=== PATIENT | female | born 1965 ===

== ENCOUNTER 2016-12-15 09:40 | Emergency (ER) | payer MEDICARE, OTHER ==
[2016-12-15 09:49] VITALS: BP 153/85; PULSE 57; TEMP 97.6; O2SAT 99
--- NOTE | 2016-12-15 10:22 | C.PDOC ---
History Of Present Illness 51 y/o female with Hx HTN presents to ED with complaints of hip pain and Gout pain worsen 4 days ago. Patient states she regularly has chronic hip pain and Gout pain but 4 days ago pain became worse. Patient denies injuries, dysuria, urinary or bowel incontinence or retention, fever, chills, numbness, weakness, recent procedures, or any other complaints at this time. Time Seen by Provider: 12/15/16 09:59 Chief Complaint (Nursing): Lower Extremity Problem/Injury History Per: Patient History/Exam Limitations: no limitations Onset/Duration Of Symptoms: Days Current Symptoms Are (Timing): Still Present Past Medical History Reviewed: Historical Data, Nursing Documentation, Vital Signs Vital Signs: Last Vital Signs Temp 97.6 F 12/15/16 09:49 Pulse 57 L 12/15/16 09:49 Resp 18 12/15/16 09:49 BP 153/85 H 12/15/16 09:49 Pulse Ox 99 12/15/16 10:30 - Medical History PMH: HTN Family History: States: No Known Family Hx - Social History Hx Alcohol Use: No Hx Substance Use: No Review Of Systems Except As Marked, All Systems Reviewed And Found Negative. Constitutional: Negative for: Fever, Chills Cardiovascular: Negative for: Chest Pain Genitourinary: Negative for: Dysuria, Frequency Musculoskeletal: Positive for: Foot Pain, Other (Hip Pain) Skin: Negative for: Rash Neurological: Negative for: Weakness, Headache, Dizziness Physical Exam - Physical Exam Additional Physical Exam Comments: Constitutional: No acute distress. Head: Normocephalic. Atraumatic. Eyes: PERRL. ENT: Moist mucous membranes. Neck: Supple. Cardiovascular: Regular rate. Radial pulse 2+ bilaterally. Chest: No tenderness. Respiratory: Clear to auscultation bilaterally. GI: Soft. Nontender. Nondistended. Back: No CVA tenderness. No Midline Tenderness Musculoskeletal: Right foot 1st digit Tenderness, Mild Swelling +Erythema Skin: No rash. Neurologic: Alert, no focal deficit.Sensation to touch intact B/L legs and saddle area , Motor 5/5 x 4 ED Course And Treatment O2 Sat by Pulse Oximetry: 99 (RA) Pulse Ox Interpretation: Normal Medical Decision Making Medical Decision Making: Toradol IM for pain. Patient's pain chronic with no evidence of infection, trauma, or cord compression. Will discharge home, f/u PMD, return to ER for worsening numbness, weakness, urinary or bowel symptoms, fever. Disposition - Disposition Disposition: HOME/ ROUTINE Disposition Time: 10:42 Condition: STABLE Prescriptions: Methocarbamol [Robaxin-750] 750 mg PO Q8H #12 tablet Instructions: Gout (ED), Hip Pain (ED) - Clinical Impression Clinical Impression: Joint pain - Scribe Statement The provider has reviewed the documentation as recorded by the Matt Judge All medical record entries made by the Matt were at my direction and personally dictated by me. I have reviewed the chart and agree that the record accurately reflects my personal performance of the history, physical exam, medical decision making, and the department course for this patient. I have also personally directed, reviewed, and agree with the discharge instructions and disposition.
--- NOTE | 2016-12-15 10:24 | C.PDOC ---
Time Seen by Provider: 12/15/16 09:59 Chief Complaint (Nursing): Lower Extremity Problem/Injury Past Medical History Vital Signs: Last Vital Signs Temp 97.6 F 12/15/16 09:49 Pulse 57 L 12/15/16 09:49 Resp 18 12/15/16 09:49 BP 153/85 H 12/15/16 09:49 Pulse Ox 99 12/15/16 09:49 - Medical History PMH: HTN - Social History Hx Alcohol Use: No Hx Substance Use: No ED Course And Treatment O2 Sat by Pulse Oximetry: 99
[2016-12-15 10:49] VITALS: RESP 16
== END 2016-12-15 10:48 | disposition home or self-care (01) ==
LOC: C.ER 09:40
DX: M25.551 Pain in right hip (principal); M25.552 Pain in left hip
CPT/HCPCS: 96372; 99284; J1885

== ENCOUNTER 2017-11-21 09:35 | Emergency (ER) | payer OTHER ==
[2017-11-21 09:47] VITALS: BMI 38.4
[2017-11-21 09:52] VITALS: PULSE 58; RESP 18; TEMP 97.7; O2SAT 99
--- NOTE | 2017-11-21 10:06 | C.PDOC ---
History Of Present Illness [id number] female presents to the emergency department with complaints of a painful bump on her buttocks for the past 3 days. She denies injuries, rectal bleeding, abdominal pain, nausea/vomiting/diarrhea, fever, or any other associated symptoms. Additionally, patient states she is taking Claritin for seasonal allergies, but it has not been working recently; requests a different medication. Time Seen by Provider: 11/21/17 09:44 Chief Complaint (Nursing): Abnormal Skin Integrity History Per: Patient History/Exam Limitations: no limitations Current Symptoms Are (Timing): Still Present Quality Of Symptoms: Painful Severity: Mild Past Medical History Reviewed: Historical Data, Nursing Documentation, Vital Signs Vital Signs: Last Vital Signs Temp 97.7 F 11/21/17 09:46 Pulse 58 L 11/21/17 09:46 Resp 18 11/21/17 10:17 BP Pulse Ox 99 11/21/17 11:35 - Medical History PMH: HTN Family History: States: No Known Family Hx - Social History Hx Alcohol Use: No Hx Substance Use: No Review Of Systems Constitutional: Negative for: Fever, Chills Gastrointestinal: Positive for: Rectal Pain. Negative for: Nausea, Vomiting, Abdominal Pain, Diarrhea, Melena, Hematochezia Neurological: Negative for: Headache, Dizziness Physical Exam - Physical Exam Appears: Well, Non-toxic, No Acute Distress Skin: Warm, Dry, No Rash Eye(s): bilateral: Normal Inspection Cardiovascular: Rhythm Regular Respiratory: Normal Breath Sounds, No Rales, No Rhonchi, No Wheezing Gastrointestinal/Abdominal: Normal Exam, Bowel Sounds, Soft, No Tenderness Rectal: Hemorrhoids (at 4 o'clock. Non-thrombosed. No fissures. No bleeding), Tenderness (hemorrhoid mildly TTP) Neurological/Psych: Oriented x3 ED Course And Treatment O2 Sat by Pulse Oximetry: 99 (RA) Pulse Ox Interpretation: Normal Progress Note: Patient given PO Colace in ED. Rxs for Colace, Zyrtec and anusol given, and patient instructed on sitz baths. She was instructed to follow up with PMD in 1-2 days, and understands she should return to ED if symptoms worsen. Disposition Counseled Patient/Family Regarding: Diagnosis, Need For Followup, Rx Given - Disposition Referrals: Angelita Trejo MD [Medical Doctor] - Disposition: HOME/ ROUTINE Disposition Time: 10:05 Condition: STABLE Additional Instructions: FOLLOW UP WITH YOUR DOCTOR/CLINIC IN 1-2 DAYS USE MEDICATIONS DIRECTED RETURN TO ER IF SYMPTOMS WORSEN Prescriptions: Cetirizine HCl [Zyrtec] 10 mg PO DAILY PRN #15 capsule PRN Reason: allergies Docusate [Colace] 100 mg PO DAILY #30 cap Hydrocortisone 2.5% (Rectal) [Anusol-HC] 1 applic IN TID #1 tube Instructions: Hemorrhoids (DC), How to Do a Sitz Bath Forms: [employer] (Sri [place]ankan) Print Language: CZECH - Clinical Impression Clinical Impression: Hemorrhoid, Seasonal allergies - Scribe Statement The provider has reviewed the documentation as recorded by the Scribe (Lexi Huerta) All medical record entries made by the Scribe were at my direction and personally dictated by me. I have reviewed the chart and agree that the record accurately reflects my personal performance of the history, physical exam, medical decision making, and the department course for this patient. I have also personally directed, reviewed, and agree with the discharge instructions and disposition.
== END 2017-11-21 10:18 | disposition home or self-care (01) ==
LOC: C.ER 09:35
DX: J30.2 Other seasonal allergic rhinitis (principal); K64.9 Unspecified hemorrhoids; I10 Essential (primary) hypertension

== ENCOUNTER 2018-01-17 07:55 | Emergency (ER) | payer OTHER ==
[2018-01-17 07:56] VITALS: BMI 38.4
--- NOTE | 2018-01-17 08:05 | C.PDOC ---
History Of Present Illness 52 y/o female presents to the ER for evaluation of rectal pain after she had a hemorrhoidectomy 5 days ago. Patient states that the surgery was performed by Dr.Anroy Perdomo and she was discharged on Colace. Patient reports that she did not have a bm since the surgery. She notes that she called the Dr. Lorraine Crouch but he does not work at [facility]. However, she decided to come to [facility] because it is closer to her home. Time Seen by Provider: 01/17/18 08:05 Chief Complaint (Nursing): Abdominal Pain History Per: Patient History/Exam Limitations: no limitations Onset/Duration Of Symptoms: Days Current Symptoms Are (Timing): Still Present Severity: Moderate Past Medical History Reviewed: Historical Data, Nursing Documentation, Vital Signs Vital Signs: Last Vital Signs Temp 98.5 F 01/17/18 09:06 Pulse 84 01/17/18 09:06 Resp 18 01/17/18 09:06 BP 146/86 01/17/18 09:06 Pulse Ox 99 01/17/18 09:36 - Medical History PMH: HTN Other Surgeries: Hx of surgeries Family History: States: No Known Family Hx - Social History Hx Alcohol Use: No Hx Substance Use: No Review Of Systems Except As Marked, All Systems Reviewed And Found Negative. Constitutional: Negative for: Fever, Chills Gastrointestinal: Positive for: Constipation, Rectal Pain. Negative for: Hematochezia Physical Exam - Physical Exam Appears: Non-toxic, No Acute Distress Skin: Normal Color, Warm, Dry Head: Atraumatic, Normacephalic Eye(s): bilateral: Normal Inspection Nose: Normal Oral Mucosa: Moist Neck: Supple Chest: Symmetrical Cardiovascular: Rhythm Regular Respiratory: Normal Breath Sounds, No Rales, No Rhonchi, No Wheezing Gastrointestinal/Abdominal: Normal Exam, Soft, No Tenderness, No Guarding, No Rebound Rectal: Other (no erythema ,no obvious swelling, no active bleeding) Extremity: Normal ROM Neurological/Psych: Oriented x3, Normal Speech ED Course And Treatment O2 Sat by Pulse Oximetry: 99 (RA) Pulse Ox Interpretation: Normal Progress Note: Dr. Perdomo's office was contacted. The health center manager stated that they will call back. No call back from patient's surgeon. [facility] surgical dressing maker was contacted. Advice was to Rx patient with Miralax and topical Lidocaine and to d/c her home with her surgeon to follow up. Disposition - Disposition Referrals: Lorraine Perdomo MD [Medical Doctor] - Disposition: HOME/ ROUTINE Disposition Time: 08:53 Condition: STABLE Additional Instructions: Follow up with your solar energy sales specialist within 1-2 days. Return to ED if feel worse. Prescriptions: Polyethylene Glycol 3350 [Miralax] 17 gm PO DAILY #30 packet Lidocaine 2.5% [Xylocaine 2.5%] 1 applic TOP Q6 #1 tube Instructions: Hemorrhoidectomy Forms: [email or web address] (Faroese) - Clinical Impression Clinical Impression: Rectal pain, Constipation - PA / FINANCIAL ECONOMIST / Resident Statement MD/DO has reviewed & agrees with the documentation as recorded. - Scribe Statement The provider has reviewed the documentation as recorded by the Scribe Nikky Sadler Provider Attestation All medical record entries made by the Scribe were at my direction and personally dictated by me. I have reviewed the chart and agree that the record accurately reflects my personal performance of the history, physical exam, medical decision making, and the department course for this patient. I have also personally directed, reviewed, and agree with the discharge instructions and disposition.
[2018-01-17 08:06] VITALS: RESP 18
[2018-01-17] MEDS ORDERED: Lidocaine/Prilocaine 2.5%-2.5% Cream (5 gm) TOP STA (08:33)
[2018-01-17] MEDS ORDERED: Lidocaine/Prilocaine 2.5%-2.5% Cream (5 gm) TOP ONE (08:45)
[2018-01-17] MEDS ORDERED: Peg-Electrolyte Oral Soln 4L (Golytely) PO STA (08:52)
[2018-01-17 09:07] VITALS: BP 146/86; PULSE 84; TEMP 98.5
[2018-01-17 09:29] VITALS: O2SAT 99
== END 2018-01-17 09:10 | disposition home or self-care (01) ==
LOC: C.ER 07:55
DX: K62.89 Other specified diseases of anus and rectum (principal); K59.00 Constipation, unspecified

== ENCOUNTER 2018-10-17 07:27 | Outpatient (CLI) | payer OTHER | END 2018-10-17 07:28 | disposition home or self-care (01) | LOC: C.MRIC 07:28 | DX: M24.9 Joint derangement, unspecified (principal) ==